=== PATIENT | male | born 1940 | race Caucasian/White ===

== ENCOUNTER 2018-09-19 11:15 | Emergency (ER) | payer MEDICARE ==
--- NOTE | 2018-09-19 13:21 | ED ---
GI/ HPI - HPI Summary HPI Summary: Patient is a 78 y/o M w/ c/o right testicular pain onsetting this morning at around 0400. Patient reports being sent to ED by PCP due to Dx of hernia. He reports two prior hernias, notes PSHx of hernia surgery repair. Patient denies coughing, sneezing, straining with bowel movement, or any other activity which could have aggravated Sx. He denies vomiting, patient arrived in private car. Fever, chills, erythema of eyes, sore throat, chest pain, SOB, cough, abdominal pain, vomiting, nausea, dysuria, hematuria, myalgia, edema, rash and dizziness are not reported. On triage, pain is rated 7/10, nothing is noted to aggravate Sx, rest is noted to alleviate Sx. Home medications and allergies are reviewed. - History of Current Complaint Chief Complaint: EDAbdPain Time Seen by Provider: 09/19/18 13:13 Stated Complaint: GROIN PAIN Hx Obtained From: Patient Onset/Duration: Started Hours Ago - onset 0400, Still Present Timing: Constant, Lasting Hours - onset 0400 today Current Severity: Severe - 7/10 Pain Intensity: 7 Additional Locations for Males: Testicles - right Associated Signs and Symptoms: Positive: Other: - Fever, chills, erythema of eyes, sore throat, chest pain, SOB, cough, abdominal pain, vomiting, nausea, dysuria, hematuria, myalgia, edema, rash and dizziness are not reported.. Negative: Dizziness, Nausea, Vomiting, Fever, Hematuria, Dysuria, Chills, Abdominal Pain, Cough, Chest Pain - Allergy/Home Medications Allergies/Adverse Reactions: Allergies Allergy/AdvReac Type Severity Reaction Status Date / Time No Known Allergies Allergy Verified 01/30/18 11:27 Home Medications: Home Medications Escitalopram (NF) [Lexapro 10 mg (NF)] 10 mg PO DAILY 09/19/18 [History Confirmed 09/19/18] Verapamil HCl [Verapamil ER] 120 mg PO DAILY 09/19/18 [History Confirmed ] PMH/Surg Hx/FS Hx/Imm Hx History: Reports: Other Problems/Disorders - Hx of hernia Sensory History: Denies: Hx Legally Blind, Hx Deafness Opthamlomology History: Denies: Hx Legally Blind EENT History: Denies: Hx Deafness - Cancer History Cancer Type, Location and Year: PROSTATE - Surgical History Surgery Procedure, Year, and Place: hernia repair surgery Infectious Disease History: No Infectious Disease History: Denies: Traveled Outside the [place] in Last 30 Days - Family History Known Family History: Negative: Blood Disorder - Social History Alcohol Use: Daily Alcohol Amount: "few beers after work" Substance Use Type: Reports: None Smoking Status (MU): Former Smoker Physical Exam - Summary Physical Exam Summary: Constitutional: Well-developed, Well-nourished, Alert. (-) Distressed Skin: Warm, Dry HENT: Normocephalic; Atraumatic Eyes: Conjunctiva normal Neck: Musculoskeletal ROM normal neck. (-) JVD, (-) Stridor, (-) Tracheal deviation Cardio: Rhythm regular, rate normal, Heart sounds normal; Intact distal pulses; The pedal pulses are 2+ and symmetric. Radial pulses are 2+ and symmetric. (-) Murmur Pulmonary/Chest wall: Effort normal. (-) Respiratory distress, (-) Wheezes, (-) Rales Abd: Soft, (-) epigastric tenderness, (-) Distension, (-) Guarding, (-) Rebound Genital Exam: Tenderness over right inguinal region, there is no hernia palpable on scrotum nor on inguinal canal through scrotum. Musculoskeletal: (-) Edema Lymph: (-) Cervical adenopathy Neuro: Alert, Oriented x3 Psych: Mood and affect Normal Triage Information Reviewed: Yes Vital Signs On Initial Exam: Initial Vitals Temp Pulse Resp BP Pulse Ox 98.3 F 91 18 154/83 95 09/19/18 11:18 09/19/18 11:18 09/19/18 11:18 09/19/18 11:18 09/19/18 11:18 Vital Signs Reviewed: Yes Diagnostics - Vital Signs Vital Signs Temp Pulse Resp BP Pulse Ox 09/19/18 11:18 98.3 F 91 18 154/83 95 - Laboratory Result Diagrams: 09/19/18 13:33 09/19/18 13:33 Lab Statement: Any lab studies that have been ordered have been reviewed, and results considered in the medical decision making process. - CT CT ABD/PEL CT Interpretation Completed By: Radiologist Summary of CT Findings: CT ABD/PEL IMPRESSION: There is a right inguinal hernia containing omentum. Along the right abdominal. wall there is fluid and thickening of the right rectus muscle. Partial tear or. inflammatory change should BE considered. No evidence of incarcerated bowel is noted. Diverticulosis of the sigmoid colon without definite diverticulitis. Enlarging left renal cyst. Lesions in the liver likely represent hemangiomas although. several too small to characterize accurately. There is likely present on previous exam of. 06/30/2012. THIS REPORT WAS REVIEWED BY ED PHYSICIAN. Re-Evaluation - Re-Evaluation First Eval Re-Evaluation Time: 15:45 Comment: Results of labs and tests were discussed with patient. He is agreeable with discharge and PCP follow up. GIGU Course/Dx - Course Course Of Treatment: Patient is a 78 y/o M w/ c/o right testicular pain onsetting this morning at around 0400. Patient reports being sent to ED by PCP due to Dx of hernia. He reports two prior hernias, notes PSHx of hernia surgery repair. Patient denies coughing, sneezing, straining with bowel movement, or any other activity which could have aggravated Sx. He denies vomiting, patient arrived in private car. On physical exam, tenderness over right inguinal region , there is no hernia palpable on scrotum nor on inguinal canal through scrotum. Labs showed Hgb 13.8, Hct 40, MCV 96, MCH 33, absolute lymphs 0.7, absolute monos 1.0, BUN/creatinine ratio 26.7, glucose 100, lactic acid 0.8, trop 0. CT ABD/PEL IMPRESSION: There is a right inguinal hernia containing omentum. Along the right abdominal. wall there is fluid and thickening of the right rectus muscle. Partial tear or. inflammatory change should BE considered. No evidence of incarcerated bowel is noted. Diverticulosis of the sigmoid colon without definite diverticulitis. Enlarging left renal cyst. Lesions in the liver likely represent hemangiomas although. several too small to characterize accurately. There is likely present on previous exam of. 06/30/2012. Results of labs and tests were discussed with patient. He is agreeable with discharge and PCP follow up. - Diagnoses Provider Diagnoses: Right inguinal hernia, Groin strain Discharge - Sign-Out/Discharge Documenting (check all that apply): Patient Departure - DISCHARGE - Discharge Plan Condition: Stable Disposition: HOME Prescriptions: Naproxen TAB* [Naprosyn 250 mg TAB*] 500 mg PO Q8H PRN #15 tab PRN Reason: Pain Scale 6-10 traMADol TAB* [Ultram*] 50 mg PO Q6HR PRN #12 tab MDD 4 PRN Reason: Pain - Moderate To Severe Patient Education Materials: Inguinal Hernia (ED), Groin Strain (ED) Referrals: Jt Neri, [Primary Care Provider] - 3 Days Additional Instructions: RETURN TO ED FOR ANY NEW OR WORSENING SYMPTOMS. FOLLOW UP WITH PRIMARY CARE PHYSICIAN IN 2-3 DAYS. - Attestation Statements Document Initiated by Scribe: Yes Documenting Scribe: SANYA ALVAREZ Provider For Whom Scribe is Documenting (Include Credential): JANELL GAXIOLA MD Scribe Attestation: ISANYA , scribed for JANELL GAXIOLA MD on 09/19/18 at 3288. Status of Scribe Document: Ready
[2018-09-19 13:42] LABS: ABS Basophils 0 10^3/ul (0-0.2); ABS Eosinophils 0 10^3/ul (0-0.6); ABS Lymphocytes 0.7 10^3/ul (1.0-4.8); ABS Neutrophils 5.9 10^3/ul (1.5-7.7); ABS Nucleated RBC 0 10^3/ul; Eosinophil % 0.3 %; Hematocrit 40 % (42-52); Hemoglobin 13.8 g/dl (14.0-18.0); Lymphocyte % 9.4 %; Mean Corpuscular HGB Conc 35 g/dl (31-36); Mean Corpuscular Hemoglobin 33 pg (27-31); Mean Corpuscular Volume 96 fL (80-94); Mean Platelet Volume 7.5 fL (7.4-10.4); Nucleated Red Blood Cells % 0; Platelet Count 199 10^3/ul (150-450); Red Blood Count 4.13 10^6/ul (4.00-5.40); Red Cell Distribution Width 13 % (10.5-15); White Blood Count 7.7 10^3/ul (3.5-10.8)
[2018-09-19 13:50] LABS: INR 0.94 (0.77-1.02)
[2018-09-19 14:02] LABS: EGFR Non-African American 101.3 (>60)
[2018-09-19] MEDS ORDERED: Iohexol 300* (CONTRAST) 10 ML SDV IV ONE (14:33)
[2018-09-19 16:11] VITALS: BP 166/94
== END 2018-09-19 16:10 | disposition home or self-care (01) ==
LOC: ED 11:15
DX: K40.90 Unilateral inguinal hernia, without obstruction or gangrene, not specified as recurrent (principal); S39.011A Strain of muscle, fascia and tendon of abdomen, initial encounter; X58.XXXA Exposure to other specified factors, initial encounter; Y92.9 Unspecified place or not applicable; Z85.46 Personal history of malignant neoplasm of prostate; Z87.891 Personal history of nicotine dependence
CPT/HCPCS: 36415; 74177; 80053; 83605; 84484; 85025; 85610; 85730; 99283; Q9967

== ENCOUNTER 2019-05-14 05:46 | Observation (INO) | payer MEDICARE ==
[2019-05-14] MEDS ORDERED: Lactated Ringers 1000 ML Bag* 1,000 ML IV SCH (06:00)
[2019-05-14] MEDS ORDERED: Tranexamic Acid 1,000 MG in NS 0.9% 50 ML IV ONE (06:00)
[2019-05-14] MEDS ORDERED: Buffered Lidocaine 1% SYRIN* 1 ML/SYRINGE INTRADERM ONE (06:13)
[2019-05-14] MEDS ORDERED: ceFAZolin 2 GM in NS PREMIX(*) 2 GM/100 ML BAG IVPB ONE (06:13)
[2019-05-14] MEDS: Buffered Lidocaine 1% SYRIN* 1 ML/SYRINGE INTRADERM ONE ×2 (06:42→15:16)
[2019-05-14] MEDS ORDERED: Bupivacaine 0.5%* 50 ML VIAL ONE (07:14)
[2019-05-14] MEDS ORDERED: Lidocaine 1% w EPI 1:200,000* 30 ML VIAL ONE (07:14)
[2019-05-14] MEDS ORDERED: Lidocaine 2% PF * 5 ML VIAL ONE (07:27)
[2019-05-14] MEDS ORDERED: Dexmedetomidine* 200 MCG/2 ML 2 ML VIAL ONE (07:28)
[2019-05-14] MEDS ORDERED: Midazolam* 1 MG/ML 2 ML VIAL (2 MG) ONE ×2 (07:30→08:58)
[2019-05-14] MEDS ORDERED: Propofol* 500 MG/50 ML BTL ONE (08:11)
[2019-05-14] MEDS ORDERED: Propofol* 10 MG/ML 20 ML BTL ONE (08:11)
[2019-05-14] MEDS ORDERED: KETAMINE HCL* 50 MG/ML 10 ML VIAL ONE (08:11)
[2019-05-14] MEDS ORDERED: Dexamethasone IV* 4 MG/ML 1 ML (4 MG) ONE (08:58)
[2019-05-14] MEDS ORDERED: Naloxone* 0.4 MG/ML 1 ML VIAL IV PRN (09:10)
[2019-05-14] MEDS ORDERED: oxyCODONE TAB* 5 MG TAB PO PRN ×2 (09:10→10:24)
[2019-05-14] MEDS ORDERED: HYDROmorphone INJ1* 1 MG/ML SYRINGE IV PRN (09:10)
[2019-05-14] MEDS ORDERED: Ondansetron INJ* 2 MG/ML VIAL IV PRN ×2 (09:10→10:24)
[2019-05-14] MEDS ORDERED: Acetaminophen TAB* 325 MG PO PRN ×2 (09:10→10:24)
[2019-05-14] MEDS ORDERED: Ketorolac INJ* 30 MG/ML 1 ML VIAL IV PRN (09:10)
[2019-05-14] MEDS ORDERED: Magnesium Hydroxide LIQ* 30 ML UDC PO PRN (10:24)
[2019-05-14] MEDS ORDERED: Bisacodyl SUPP* 10 MG SUPP PR PRN (10:24)
[2019-05-14] MEDS ORDERED: diPHENhydraMINE IV* 50 MG/ML 1 ml VIAL (BENADRYL) IV PRN (10:24)
[2019-05-14] MEDS ORDERED: Morphine INJ* 2 MG/ML 1 ML SYRINGE (TWO MG - NEW SYRINGE VERSION) IV PRN (10:24)
--- NOTE | 2019-05-14 12:36 | OP ---
DATE OF OPERATION: 05/14/19 - ROOM #337 DATE OF : 44 SURGEON: Sharan Roland MD. REPAIR SERVICE CLERK: Sahil Glass RPA. ANESTHESIA: Spinal/regional/sedation. PRE-OP DIAGNOSIS: Osteoarthritis, left knee. POST-OP DIAGNOSIS: Osteoarthritis, left knee. OPERATIVE PROCEDURE: Left total knee arthroplasty. ESTIMATED BLOOD LOSS: 25 cc. COMPLICATIONS: None. HARDWARE: Frank Persona #9 femur, F tibia, 10 mm polyethylene spacer, 41 all- polyethylene patellar button. SUMMARY: Mr. Bustillo is a 79-year-old male who has had a long history of troubles with his left knee. When he first presented, I discussed with him a total knee arthroplasty, but he had refused, but because of his memory issues, had forgotten that he refused and continued to complain to other people about his knee. Other people had heard about this and helped direct him a little bit so that he could get the knee fixed. I discussed with Mr Bustillo and his that a knee replacement should work well to decrease his pain and improve his function. Risks of surgery such as infection, scar formation, stiffness, DVT, pulmonary embolism, and the need for physical therapy were some of the risks discussed. He had been declared medically optimized and wished to proceed. DESCRIPTION OF PROCEDURE: The patient was brought to the OR and the patient had a block placed in the holding area and was brought back to the OR. Spinal anesthesia was introduced. Tourniquet was placed over the proximal left thigh and was used during the case. Total tourniquet time would be 70 minutes. Left knee was prepped and then draped. Esmarch was used to exsanguinate the leg and a tourniquet was raised. Incision was made beginning just medial to the tibial tubercle and carried to about 2 to 3 cm above the superior pole of the patella. Any bleeders in the subcutaneous tissue were ligated using electrocautery and the extensor mechanism was nicely exposed. Sharp parapatellar arthrotomy was made. Quite a bit of clear yellowish joint fluid was encountered. Fat pad was sharply excised and the soft tissues were sharply elevated from the medial side of the tibia. Patella measured 26 mm in thickness and a nice 11 mm cut was taken. Patella was then easily subluxated laterally and the knee was flexed up. Nice exposure of the distal femur was obtained. Step drill was used to open the femoral canal and intramedullary guide was placed. These have been sent to resect 2 mm and was set at 3 degrees. Distal femoral guide was aligned along the epicondyles and then pinned into place. Distal femoral cutting guide was then pinned into place and intramedullary guide was removed. Distal femoral cut was taken, but had not even fully seated on the notch and an additional 2 mm were then resected. Coming back to the femur, the femur was sized and he sat directly for a 9. Holes were drilled and cutting block was placed. Running through the superior hole, I did not come out on the top side of the femur and this was moved up by 2 mm. Drill came out right on the top side of the femur and anterior and posterior femoral cuts followed by the chamfer cuts were taken. Attention was turned to the tibia. Intramedullary guide was placed. An outrigger was assembled and adjusted until it appeared it would take 2 mm from the worn medial side. Alignment lewis was dropped to make sure he would not go into varus or valgus. Cutting guide was then pinned into place and a proximal tibial cut was taken. With the cutting block on the top side of the tibia, his varus and valgus alignment was quite good, but he was perfectly snug with the knee in flexion and the system was designed to take an extra 2 mm posteriorly. Certainly, he was tight in extension. Considering he was tight in both, an extra 2 mm were taken from the proximal tibia and now he came out nicely into extension, and flexion was nice and easy as well. Patella tracking even without a component was good. Tibia was sized and an F sat very nicely. Proximal tibia was drilled and then punched. A #9 femur was then placed and the notch cut was finished using the notch cut finishing guide and the stud holes were drilled. He was trialed with a 10 and came out and was just a little bit tight coming into full extension and easily flexed past 135 degrees. Finally, it did seem to have easily blocked out nicely. Again, patellar tracking was good. The patella was sized and the 41 sat nicely. Holes were drilled and trial was snapped into place. He had the same wonderful motion and stability. Trial instrumentation was removed and the knee was copiously pulse lavaged. Cement was being prepared. Tibia followed by femur and patella were all cemented into place. Excess cement was removed and cement was allowed to harden. Once the cement had hardened, knee was again searched for cement and a few small pieces were found and excised using the osteotome. He had the same good motion with a 10 trial and the 10 polyethylene was called for and snapped into place. The knee was again copiously pulse lavaged and he had the same wonderful motion and stability. Parapatellar arthrotomy was repaired using interrupted #1 Vicryl sutures. Tourniquet was let down during the closure and no significant bleeding was encountered. Subcutaneous tissues were approximated with 2-0 Vicryl. Skin was closed using chapo. Lateral gutter had been injected with 10 cc of 0.25% Marcaine with epinephrine as the blocks he had were posterior and femoral nerve, and the anesthesiologist recommended only the lateral gutter. Sterile dressing and Cryo/Cuff were applied in the OR. The patient was then awakened stable on transfer to the recovery room. [id number]/CPS #: [id number] LESLIE
[2019-05-14] MEDS: Lactated Ringers 1000 ML Bag* 1,000 ML IV SCH (15:04)
[2019-05-14] MEDS ORDERED: Warfarin TAB(*) 10 MG PO ONE (17:00)
[2019-05-14] MEDS: oxyCODONE/Acetamin 5/325 MG* TAB PO PRN ×2 (17:35→21:48)
[2019-05-14] MEDS: ceFAZolin 1 GM ADVAN(*) 1 GM in NS 0.9% 50 ML* 50 ML IVPB SCH (17:35)
[2019-05-14] MEDS: Docusate CAP* 100 MG PO SCH (21:47)
[2019-05-14] MEDS: Magnesium Hydroxide LIQ* 30 ML UDC PO SCH (21:48)
[2019-05-15] MEDS: ceFAZolin 1 GM ADVAN(*) 1 GM in NS 0.9% 50 ML* 50 ML IVPB SCH ×2 (00:39→08:14)
[2019-05-15] MEDS: Lactated Ringers 1000 ML Bag* 1,000 ML IV SCH (01:29)
[2019-05-15] MEDS: oxyCODONE/Acetamin 5/325 MG* TAB PO PRN ×3 (02:16→10:21)
[2019-05-15 06:26] LABS: Hematocrit 33 % (42-52); Hemoglobin 11.7 g/dL (14.0-18.0); Mean Platelet Volume 7.9 fL (7.4-10.4); Platelet Count 213 10^3/uL (150-450)
[2019-05-15 06:39] LABS: INR 1.11 (0.82-1.09)
[2019-05-15 06:45] LABS: Calcium 8.2 mg/dL (8.6-10.3); EGFR African American 158.1 (>60); EGFR Non-African American 130.6 (>60)
[2019-05-15] MEDS: Vitamin THERAPEUTIC TAB PO SCH (08:14)
[2019-05-15] MEDS: Magnesium Hydroxide LIQ* 30 ML UDC PO SCH ×2 (08:14→22:10)
[2019-05-15] MEDS: Cyclobenzaprine TAB* 10 MG PO PRN ×2 (08:18→16:14)
[2019-05-15] MEDS: Heparin VIAL(*) 5000 UNITS/ML VIAL (FIVE THOUSAND) SUBCUT SCH ×2 (08:22→22:10)
[2019-05-15] MEDS: Docusate CAP* 100 MG PO SCH ×2 (08:24→22:10)
[2019-05-15] MEDS: Verapamil SR TAB* 240 MG PO SCH (08:25)
--- NOTE | 2019-05-15 10:44 | PN ---
Progress Note - Progress Note Date of Service: 05/15/19 Note: Patient is resting comfortably in bed. He denies SOB, CP or calf pain other than baseline knee pain. He has been up with PT today and his cryo unit is in place. Dressing is intact as well. Skin is pink, dry and intact. He dorsiflexes and plantar flexes the left ankle. Sensation is intact with 2+ DP pulse and brisk capillary refill. I reviewed working on full extension and flexion beyond 100 degrees in the first 1-2 weeks to avoid stiffness. Patient feels he may be ready for discharge tomorrow. Continue PT and we will continue to follow. Warfarin dose ordered today.
[2019-05-15] MEDS: traMADol TAB* 50 MG PO PRN ×2 (16:13→22:10)
[2019-05-15] MEDS ORDERED: Warfarin TAB(*) 10 MG PO ONE (17:00)
[2019-05-16 06:31] LABS: Hematocrit 31 % (42-52); Hemoglobin 10.9 g/dL (14.0-18.0); Mean Platelet Volume 8.1 fL (7.4-10.4); Platelet Count 186 10^3/uL (150-450)
[2019-05-16 06:36] LABS: INR 1.42 (0.82-1.09)
[2019-05-16] MEDS: Vitamin THERAPEUTIC TAB PO SCH (08:41)
[2019-05-16] MEDS: Magnesium Hydroxide LIQ* 30 ML UDC PO SCH (08:41)
[2019-05-16] MEDS: Docusate CAP* 100 MG PO SCH (08:42)
[2019-05-16] MEDS: traMADol TAB* 50 MG PO PRN (08:42)
[2019-05-16] MEDS: Verapamil SR TAB* 240 MG PO SCH (08:42)
[2019-05-16] MEDS: Heparin VIAL(*) 5000 UNITS/ML VIAL (FIVE THOUSAND) SUBCUT SCH (08:43)
--- NOTE | 2019-05-16 09:51 | PN ---
Progress Note - Progress Note Date of Service: 05/16/19 SOAP: Subjective: []Pt seen and examined at bedside. Pain is well controlled and desires DC home. Denies CP, SOB, dizziness, nausea. Objective: []Gen: NAD, appears well LLE: Dressing changed, incision CDI. Thigh is soft and nontender. DF/PF intact, DP2+, sensation intact to light touch distally Calves supple and nontender without erythema, edema or palpable cords Assessment: []POD 2 sp LTK Plan: []WBAT PT/OT heparin bridge to coumadin. coumadin 6 mg today. Will do outpt PT and lab draws. also recheck Na tomorrow at lab draw Dc home today Vital Signs Temp 97.8 F 05/16/19 07:39 Pulse 84 05/16/19 07:39 Resp 14 05/16/19 08:42 BP 127/63 05/16/19 07:39 Pulse Ox 94 05/16/19 07:39 Intake & Output 05/15/19 05/16/19 05/16/19 18:59 06:59 18:59 Intake Total 2119 860 Output Total 1275 Balance 2119 -415 Intake: IV Fluids 865 LR 865 IVPB 54 ABX - CEFAZOLIN 54 Oral 1200 860 Output: Urine 1275 Other: Estimated Void Medium Medium # Bowel Movements 0 # Voids 1 1 Laboratory Last Values Hgb 10.9 g/dL (14.0-18.0) L 05/16/19 05:55 Hct 31 % (42-52) L 05/16/19 05:55 Plt Count 186 10^3/uL (150-450) 05/16/19 05:55 MPV 8.1 fL (7.4-10.4) 05/16/19 05:55 INR (Anticoag Therapy) 1.42 (0.82-1.09) H 05/16/19 05:55 Sodium 133 mmol/L (135-145) L 05/15/19 05:53 Potassium 4.0 mmol/L (3.5-5.0) 05/15/19 05:53 Chloride 103 mmol/L (101-111) 05/15/19 05:53 Carbon Dioxide 23 mmol/L (22-32) 05/15/19 05:53 Anion Gap 7 mmol/L (2-11) 05/15/19 05:53 BUN 18 mg/dL (6-24) 05/15/19 05:53 Creatinine 0.60 mg/dL (0.67-1.17) L 05/15/19 05:53 Est GFR ( Amer) 158.1 (>60) 05/15/19 05:53 Est GFR (Non-Af Amer) 130.6 (>60) 05/15/19 05:53 BUN/Creatinine Ratio 30.0 (8-20) H 05/15/19 05:53 Glucose 115 mg/dL (70-100) H 05/15/19 05:53 Calcium 8.2 mg/dL (8.6-10.3) L 05/15/19 05:53
--- NOTE | 2019-05-16 10:34 | DS ---
Orthopedic Discharge Summary - Discharge Summary Date of Admission:05/14/19 Date of Discharge: 05/16/19 Date of Surgery: 05/14/19 Attending Orthopedic Provider: Dr Roland Pre-operative Diagnosis: Left knee osteoarthritis Operative Procedure: left total knee replacement Disposition of Patient: home with nursing services Condition of Patient: stable History: MIGUEL ASTUDILLO is a 79 year old M with years of increasingly severe left knee pain. Patient has failed conservative management and has elected to undergo a left total knee replacement Hospital Course: MIGUEL was admitted to [facility] on 05/14/19. Patient underwent a left total knee replacement without complication followed by a brief recovery in PACU and transfer to the Short Stay Surgical Unit in stable condition. Our physical therapy service also participated in this patients care. Post-op day 1: patient was alert and in no acute distress. Dressing was clean, dry and intact. Operative extremity dorsiflexion and plantarflexion intact, sensation intact to light touch distally, DP2+. Post-op day two: dressing was changed, incision was clean, dry and intact. Patient was deemed to be medically and orthopedically stable for discharge. Physical therapy goals were met. Home Medications Medication Instructions Recorded Confirmed Type Verapamil HCl [Verapamil ER] 120 mg PO QAM 09/19/18 05/14/19 History Ibuprofen [Motrin Ib] 2 tab PO BID 05/08/19 05/14/19 History Multivitamin [Multiple Vitamins] 1 tab PO QAM 05/08/19 05/14/19 History Acetaminophen TAB* [Tylenol TAB*] 650 mg PO Q8H PRN tab 05/16/19 Rx Aspirin 325 mg PO DAILY #5 tablet 05/16/19 Rx Docusate CAP* [Colace Cap*] 100 mg PO BID PRN #90 cap 05/16/19 Rx Warfarin TAB(*) [Coumadin TAB(*)] 2 mg PO DAILY 30 Days #90 tab 05/16/19 Rx oxyCODONE TAB* [Roxycodone TAB 5 10 mg PO Q4H PRN #70 tab MDD 10 05/16/19 Rx mg*] Discharge Instructions following Orthopedic Surgery: Activity: * Weight Bearing as tolerated * Continue physical therapy and occupational therapy exercises as shown * Home PT Wound care: * OK to shower on post-op day 3, no bathing, swimming, or submerging wound. * Use gentle soap, pat dry. Cover with gauze, ROHAN wrap or tape. * Visiting home nurse to do wound checks. Call Orthopedic office for: * Increased drainage * Redness * Increased pain * Fever Go to ER with shortness of breath or chest pain. Diet: * Regular diet * Increase fluids and fiber to prevent constipation. * Continue to use stool softeners, call office if no bowel motion within 48 hours. Medications See Home Medication List in your packet for medications that you should take after discharge. DVT Prophylaxis: This medication increases bleeding tendency Coumadin Dosing: * Please note that you have been given 2 mg tablets. * Visiting home nurse to draw blood work for INR on Tuesday and for 30 days post op * You will be provided with dose instructions on Mondays and . * If you do not receive dosing instruction on dosing, please call our office right away. Please tucker dosing instructions on your calendar as they are provided to you. * Dosin mg 05/16. On 05/17 repeat INR blood draw for further dosing instructions. Call orthopedic office if you do not receive dosing instructions. * Until your INR reaches a therapeutic level ( 2-3) please take one 325 mg aspirin daily. Once INR is between 2-3 you can stop taking aspirin. The orthopedic office will instruct you when to stop. Lab You will also need your sodium level drawn 05/17 as it was low in the hospital Pain Control: Oxycodone 5 mg tabs take 1-2 tabs by mouth every 4-6 hours as needed for pain. Maximum of 10 tabs per day. Hold for sedation and wean off as soon as pain allows Antibiotics are required prior to any dental work. FOLLOW UP: Follow up with [Luan] Within 4 weeks post op. call for appointment Please call our office with any questions or concerns ([phone])
[2019-05-16 11:36] VITALS: BP 129/62
[2019-05-16] MEDS: oxyCODONE/Acetamin 5/325 MG* TAB PO PRN (12:31)
== END 2019-05-16 12:45 | disposition home or self-care (01) ==
LOC: OR 05:46 → EDSTATUS 07:30 → SSU 10:26 → INTOOBSV 14:56 → UNDOADMOB 14:56 → SSU 14:56
PROVIDERS: ADMIT Orthopaedic Surgery; ATTEND Orthopaedic Surgery
DX: M17.12 Unilateral primary osteoarthritis, left knee (principal); I10 Essential (primary) hypertension; J84.10 Pulmonary fibrosis, unspecified; Z87.891 Personal history of nicotine dependence; Z79.899 Other long term (current) drug therapy; F01.51 Vascular dementia, unspecified severity, with behavioral disturbance
CPT/HCPCS: 36415; 80048; 85014; 85018; 85049; 85610; 96372; 96374; 96376; A9270-GY; C1776; G0378; G8978-GP-CJ; G8979-GP-CI; J0690; J1100; J1644; J2001; J2250; J2704; J3490

== ENCOUNTER 2019-10-01 05:29 | Inpatient (IN) | payer MEDICARE ==
[~2019-10-01 05:29] MED LIST: Buffered Lidocaine 1% SYRIN* 1 ML/SYRINGE INTRADERM ONE; Lactated Ringers 1000 ML Bag* 1,000 ML IV SCH; Tranexamic Acid 1,000 MG in NS 0.9% 50 ML* (outpatient use) IV SCH
--- OUTSIDE RECORDS SUMMARY | 2019-10-01 05:33 | XMS REPORT | Continuity of Care Document ---
:1940 External Reference #:[id number] Author Name Sharan Roland M.D. (transmitted by agent of provider Sahil Glass) Address [address] [facility] [place] [address] Care Team Providers Name Role Phone Jt Neri D.O. 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 Onset: 01/02/2019 Localized, primary osteoarthritis Sharan Roland M.D. Onset: 11/02/2018 Hypoxemia Felisha Bailey MD Onset: 02/25/2017 Disorder of lung Felisha Bailey MD Onset: 02/25/2017 Social History Type Date Description Comments Sex Unknown Tobacco Use Start: Unknown End: Former Cigarette Smoker Smoked socially for Unknown 12 years Smoking Status Reviewed: 09/18/19 Former Cigarette Smoker Smoked socially for 12 years ETOH Use consumes 2-3 beers per day Tobacco Use Start: Unknown End: Patient is a former Quit in 1971 Unknown smoker Recreational Drug Use Denies Drug Use Exercise Type/Frequency Exercises regularly Allergies, Adverse Reactions, Alerts Active Allergies Reaction Severity Comments Date Aricept 01/30/2015 Inactive Allergies NKDA 01/30/2015 Medications Active Medications SIG Qnty Indications Ordering Provider Date One-Daily Multi 1 by mouth every Unknown Vitamins day Tablets Ibuprofen as needed Unknown 200mg Capsules Lisinopril 1 by mouth every Unknown 10mg Tablets day * patient unaware of dose Immunizations Description No Information Available Vital Signs Date Vital Result Comment 09/18/2019 8:12am Height 73 inches 6'1" Weight 204.50 lb Heart Rate 77 /min BP Systolic Sitting 150 mmHg BP Diastolic Sitting 84 mmHg Body Temperature 98.2 F BMI (Body Mass Index) 27.0 kg/m2 07/06/2019 12:52pm Height 73 inches 6'1" Weight 203.00 lb Heart Rate 81 /min BP Systolic Sitting 150 mmHg BP Diastolic Sitting 72 mmHg Body Temperature 98.6 F BMI (Body Mass Index) 26.8 kg/m2 Results Test Acquired Date Facility Test Result H/L Range Note Type & Screen 09/25/2019 [facility] Patient Blood B Negative [address] [place] [address] [phone] Antibody Screen NEGATIVE Inr/Protime 05/08/2019 [facility] Inr 1.01 Normal 0.82-1.09 2 , [address] [place] [address] [phone] Laboratory 05/08/2019 [facility] Partial 37.9 Normal 26.0- 38.0 4 test finding [address] [place] [address] Time PTT [phone] Type & Screen 05/08/2019 [facility] Patient B Negative [address] Blood Type [place], [place] [id number] [phone] Antibody Screen NEGATIVE 1 POST-TRAUMATIC OSTEOARTHRITIS, LEFT SHOULDER 2 AA 05/14 3 Standard intensity warfarin therapeutic range: 2.0-3.0 High intensity warfarin therapeutic range: 2.5-3.5 4 AA 05/14 Procedures Date Code Description Status 05/14/2019 24474 TKR Total Knee Replacement Completed 05/14/2019 14052 TKR Total Knee Replacement Completed Medical Devices Description No Information Available Encounters Type Date Location Provider Dx Diagnosis Office Visit 07/06/2019 [facility] Mulu Vital.112 Post- traumatic 1:00p at [facility] osteoarthritis, left shoulder Office Visit 05/04/2019 [facility] Yuly Vital7.12 Unilateral 1:15p at [facility] primary osteoarthritis, left knee Assessments Date Code Description Provider 09/18/2019 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 06/12/2019 M17.12 Unilateral primary osteoarthritis, left knee Sharan Roland M.D. 06/12/2019 Z96.652 Presence of left artificial knee joint Sharan Roland M.D. 06/12/2019 Z47.1 Aftercare following joint replacement surgery Sharan Roland M.D. 05/14/2019 M17.12 Unilateral primary osteoarthritis, left knee Sahil Glass PA-C 05/14/2019 M17.12 Unilateral primary osteoarthritis, left knee Sharan Roland M.D. 05/04/2019 M17.12 Unilateral primary osteoarthritis, left knee Sharan Roland M.D. 04/18/2019 M17.12 Unilateral primary osteoarthritis, left knee Sharan Roland M.D. 04/18/2019 M17.11 Unilateral primary osteoarthritis, right knee Sharan Roland M.D. 04/13/2019 M17.12 Unilateral primary osteoarthritis, left knee Sharan Roland M.D. Plan of Treatment Future Appointment(s):10/16/2019 11:00 am - Sharan Roland M.D. at [facility]10/01/2019 9:00 am - RG Sánchez at [facility] at [id number]/01/2019 9:00 am - Shraan Roland M.D. at [facility] at Fwzjhm3609/18/2019 - Sharan Roland M.D.M19.112 Post-traumatic osteoarthritis, left shoulderFollow up:2 weeks after surgery Functional Status Functional Condition Comment Date Status Glasses Active Mental Status Description No Information Available Referrals Description No Information Available
--- OUTSIDE RECORDS SUMMARY | 2019-10-01 05:33 | XMS REPORT | Continuity of Care Document ---
:1940 External Reference #:[id number] Author Name Sharan Roland M.D. (transmitted by agent of provider Sonal Sparrow) Address [address] [facility] [place] [address] Care Team Providers Name Role Phone Jt Neri D.O. - Internal Care Team Information Registrar Assistant Medicine Problems Active Problems Provider Date Rotator [...] Date Facility Test Result H/L Range Note Inr/Protime 05/08/2019 [facility] Inr 1.01 Normal 0.82-1.09 1 , [address] [place] [address] [phone] Laboratory test 05/08/2019 [facility] Partial 37.9 seconds Normal 26.0-38.0 [address] [place] [address] Time PTT [phone] Type & Screen 05/08/2019 [facility] Patient B Negative [address] [place] [address] [phone] Antibody Screen NEGATIVE 1 AA 05/14 2 Standard intensity warfarin therapeutic range: 2.0-3.0 High intensity warfarin therapeutic range: 2.5-3.5 3 AA 05/14 Procedures Date Code Description Status 05/14/2019 11060 TKR Total Knee Replacement Completed 05/14/2019 44498 TKR Total Knee Replacement Completed Medical Devices Description No Information Available Encounters Type Date Location Provider Dx Diagnosis Office Visit 07/06/2019 [facility] Mulu Vital.112 Post- traumatic 1:00p at [facility] osteoarthritis, left shoulder Office Visit 05/04/2019 [facility] Yuly Vital7.12 Unilateral 1:15p at [facility] [...] 11:00 am - Sharan Roland M.D. at [facility]10/01/2019 9:00 am - RG Sánchez at [facility] at [id number]/01/2019 9:00 am - Sharan Roland M.D. at [facility] at Rstsgh7909/18/2019 - Sharan Roland M.D.M19.112 Post-traumatic osteoarthritis, left shoulderFollow up:2 weeks after surgery Functional Status Functional Condition Comment Date Status Glasses Active Mental Status Description No Information Available Referrals Description No Information Available
[2019-10-01] MEDS ORDERED: ceFAZolin 2 GM PREMIX in ORs 2 GM/50 ML BAG ONE (06:01)
[2019-10-01] MEDS ORDERED: Lidocaine 2% PF * 5 ML VIAL ONE (06:56)
[2019-10-01] MEDS ORDERED: Propofol* 10 MG/ML 20 ML BTL ONE (06:56)
[2019-10-01] MEDS ORDERED: Dexmedetomidine* 200 MCG/2 ML 2 ML VIAL ONE (06:57)
[2019-10-01] MEDS ORDERED: ROPIVACAINE 5 MG/ML 30 ML BTL (0.5%) ONE (06:57)
[2019-10-01] MEDS ORDERED: Midazolam* 1 MG/ML 2 ML VIAL (2 MG) ONE ×2 (06:57→10:17)
[2019-10-01] MEDS ORDERED: Bupivacaine 0.5% W/EPI SDV* 30 ML VIAL ONE (06:58)
[2019-10-01] MEDS ORDERED: Lidocaine 1% MPF ** 5 ML VIAL ONE (07:16)
[2019-10-01] MEDS ORDERED: Remifentanil* 2 MG VIAL ONE ×2 (07:35→10:17)
[2019-10-01] MEDS ORDERED: Propofol* 500 MG/50 ML BTL ONE ×2 (07:35→09:18)
[2019-10-01] MEDS ORDERED: Phenylephrine 10 MG/ML VIAL* 1 ML VIAL ONE (07:43)
[2019-10-01] MEDS ORDERED: fentaNYL* 50 MCG/ML 2 ML VIAL (100 MCG VIAL) ONE (08:16)
[2019-10-01] MEDS ORDERED: Rocuronium* 10 MG/ML VIAL ONE (08:17)
[2019-10-01] MEDS: Lactated Ringers 1000 ML Bag* 1,000 ML IV SCH ×2 (08:40→13:06)
[2019-10-01] MEDS ORDERED: Dexamethasone IV* 4 MG/ML 1 ML (4 MG) ONE (09:09)
[2019-10-01] MEDS ORDERED: Ketorolac INJ* 30 MG/ML 1 ML VIAL ONE (09:09)
[2019-10-01] MEDS ORDERED: Metoclopramide IV* 5 MG/ML 2 ML VIAL ONE (09:09)
[2019-10-01] MEDS ORDERED: Ondansetron INJ* 2 MG/ML VIAL ONE (09:09)
[2019-10-01] MEDS ORDERED: HYDROmorphone INJ1* 1 MG/ML SYRINGE IV PRN (10:05)
[2019-10-01] MEDS ORDERED: DiMENhydriNATE IV* 50 MG/ML VIAL IV PUSH PRN (10:05)
[2019-10-01] MEDS ORDERED: oxyCODONE TAB* 5 MG TAB PO PRN ×2 (10:05→11:17)
[2019-10-01] MEDS ORDERED: Naloxone* 0.4 MG/ML 1 ML VIAL IV PRN (10:05)
[2019-10-01] MEDS ORDERED: EPHEDrine (Pressors)* 50 MG/ML VIAL ONE (10:17)
[2019-10-01] MEDS ORDERED: Glycopyrrolate IV* 0.2 MG/ML 1 ML VIAL ONE (10:56)
[2019-10-01] MEDS ORDERED: Neostigmine Methylsulfate* 1 MG/ML 10 ML VIAL (1 mg/ml) ONE (10:56)
[2019-10-01] MEDS ORDERED: Ondansetron INJ* 2 MG/ML VIAL IV PRN (11:17)
[2019-10-01] MEDS ORDERED: Ondansetron ODT TAB* 4 MG PO PRN (11:17)
[2019-10-01] MEDS ORDERED: Ketorolac INJ* 30 MG/ML 1 ML VIAL IV PRN (11:17)
[2019-10-01] MEDS ORDERED: diPHENhydraMINE IV* 50 MG/ML 1 ml VIAL (BENADRYL) IV PRN (11:17)
[2019-10-01] MEDS ORDERED: Cyclobenzaprine TAB* 10 MG PO PRN (11:17)
[2019-10-01] MEDS ORDERED: diPHENhydraMINE PO* 25 MG PO PRN (11:17)
[2019-10-01] MEDS ORDERED: Morphine INJ* 2 MG/ML 1 ML SYRINGE (TWO MG - NEW SYRINGE VERSION) IV PRN (11:17)
[2019-10-01] MEDS ORDERED: Magnesium Hydroxide LIQ* 30 ML UDC PO PRN (11:17)
--- NOTE | 2019-10-01 12:54 | OP ---
DATE OF OPERATION: 10/01/19 - ROOM #338 DATE OF : 44 SURGEON: Sharan Roland MD GENERATING PLANT SUPERINTENDENT: Amanda Pineda RPA ANESTHESIA: General endotracheal and regional. PRE-OP DIAGNOSIS: Traumatic arthropathy, left shoulder. 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 OPERATIVE PROCEDURE: Left reverse total shoulder arthroplasty. ESTIMATED BLOOD LOSS: 200 cc. COMPLICATIONS: None. SPECIMEN: Synovium from lateral cyst. HARDWARE: Agrawal #24 stem reverse body, +9 instrument lens generator with standard polyethylene liner, standard glenoid with 2 screws, 36 mm eccentric glenosphere. INDICATIONS: Mr. Bustillo is a 79-year-old male who had previously undergone a right total knee arthroplasty. He had done quite well with this and also has been complaining quite a bit about his left shoulder. He had quite impressive bulges around the shoulder, which MRI showed was seemed to be joint fluid from a lack of a rotator cuff even though the radiologist read them as no rotator cuff tear. Considering that he had worn down the glenoid and had significant arthritis and bone spurs, I discussed with him that a standard shoulder replacement would not work well so he would need a reverse total shoulder arthroplasty. Risks of surgery such as infection, scar formation, stiffness, instability, continued pain, and nerve injury were some of the risks discussed. He had been declared medically optimized and wished to proceed. FINDINGS: Thickened synovium in the cyst, which was reddish brown with no useful rotator cuff tissue. DESCRIPTION OF PROCEDURE: The patient had a block placed in the holding area and was brought back to the OR. General endotracheal anesthesia was established. Zheng catheter was placed and he was then sat up in a beach chair position. Care was taken to make sure that his right arm was nicely abducted on the armboard and that the cubital tunnel was free and clear. Left shoulder area was prepped and then draped. I came more lateral than I usually do as I usually come much more over deltopectoral interval, but because of the cyst that he had, I thought coming directly over the cyst as he already had thinned out his deltoid tissue significantly would work well to give us nice access to the glenoid and then I could bring all of his deltoid back together so that he would have a better functioning deltoid. Incision was made through the skin and subcutaneous tissue. Small bleeders encountered were ligated using electrocautery. Gentle dissection was carried out and full-thickness flaps were elevated and it could be seen where the cyst had thinned and there was only cyst tissue, and at the very proximal portion, there was only a little bit of deltoid musculature. Incision was made and thick yellowish joint fluid was encountered. He also though had abundant synovial tissue, which was mostly reddish and with a few brown here and there. It did not appear like the typical PVNS with the bleeding, but it was proliferative enough so that this was sent for pathology. Once the cyst had been nicely debrided, the humerus was immediately evident. No rotator cuff. Just with taking the cyst down, I could palpate all the way around into the glenohumeral joint easily. There did not seem to be a supraspinatus nor a subscapularis. Rather his cyst tissue was wrapped around as I could come down on top of the bone and he still had some of the cyst tissue and cyst tissue was also then resected. This gave nice access to the humeral head. Once the head had been exposed, broach was used and outrigger was assembled so that I could resect the humeral head. Once the alignment was set at about 20 degrees, cutting guide was pinned into place and proximal humeral cut was taken. Using the humeral head retractor and the Fukuda , exposure of the glenoid was actually relatively easy from this lateral angle. I was able to resect labrum nicely and labrum was then peeled a little bit anteriorly to allow me better access. With this, I had full exposure of the face of the glenoid. Drill guide was placed, and after just drilling a little bit, I encountered what I thought to be the posterior wall and then came through and then hit no resistance. Pin was then moved a little anteriorly and I angled a little bit more into what I thought would be the plane of a scapula and came through the bone of the glenoid and then there he seemed to have solid bone behind. Reamer was then run and when I just started to touch posteriorly, reaming was stopped. I had created a nice little recess for the glenoid. Standard drill was then run over the guidewire and guidewire came out with the drill. Standard glenoid was then impacted into place. Glenoid itself seemed to be nice and solid and then 2 screws, one 25 and one 30, were also placed and both screws had a wonderful bite. Attention was returned to the humerus. Humerus was progressively broached and I had templated him to a 24 and a 23 was snug, but still a little bit loose, and with the 24 fully seated, I could rock his entire arm. Reamer was then set. 24 was removed and he was then set up for reaming. Reamer was then run creating the recess for the humeral head. Trial was then placed and 36 slightly eccentric glenosphere was also placed. Glenosphere had a nice squeak when it was fully settled. With just the standard , he was loose and I could easily slide him in and out of reduction. I went with the +3, +6 and then the +9 extension, and with the +9 extension, he seemed to be fairly good. This was trialed and his motion seemed to be good and his stability was also quite good. Trial was removed and the 24 with the reverse body was impacted on the back table. This was then impacted into the humerus. He was again trialed and I liked the polyethylene slightly rotated so that it would give him the lip a little bit more as he wanted to lever a little bit coming across his body. +9 extension was impacted onto the implant and he was trialed again with the standard, and now, he did not lever when I had him rotated. Standard polyethylene was then impacted into place. I took him through motion. He had same wonderful motion and stability. Shoulder was copiously irrigated using pulse lavage and deltoid was repaired using interrupted 0 Vicryl sutures. Subcutaneous tissues were reapproximated with 2-0 Vicryl. Skin was repaired using a running PDS. Sterile dressing and a shoulder immobilizer were applied in the OR. The patient was then extubated in the OR and was stable on transfer to the recovery room. [id number]/[facility] #: [id number] LESLIE
[2019-10-01] MEDS: traMADol TAB* 50 MG PO SCH ×3 (14:15→23:44)
[2019-10-01] MEDS: Acetaminophen TAB* 325 MG PO SCH ×2 (14:24→21:35)
[2019-10-01] MEDS: ceFAZolin 1 GM ADVAN(*) 1 GM in NS 0.9% 50 ML* 50 ML IVPB SCH ×2 (14:24→21:37)
[2019-10-01] MEDS: Magnesium Hydroxide LIQ* 30 ML UDC PO SCH (20:17)
[2019-10-01] MEDS: Docusate CAP* 100 MG PO SCH (20:17)
[2019-10-02] MEDS: Acetaminophen TAB* 325 MG PO SCH ×3 (05:46→21:10)
[2019-10-02] MEDS: traMADol TAB* 50 MG PO SCH ×3 (05:46→18:02)
[2019-10-02] MEDS: ceFAZolin 1 GM ADVAN(*) 1 GM in NS 0.9% 50 ML* 50 ML IVPB SCH (05:57)
[2019-10-02 06:36] LABS: Hematocrit 28 % (42-52); Hemoglobin 9.9 g/dL (14.0-18.0); Mean Platelet Volume 7.7 fL (7.4-10.4); Platelet Count 202 10^3/uL (150-450)
[2019-10-02 06:48] LABS: BUN/Creatinine Ratio 11.7 (8-20); Calcium 6.6 mg/dL (8.6-10.3); EGFR African American 44.8 (>60); Potassium 3.5 mmol/L (3.5-5.0)
--- NOTE | 2019-10-02 07:38 | PN ---
Progress Note - Progress Note Date of Service: 10/02/19 SOAP: Subjective: []Pt seen at bedside. He feels well with a sore but not painful shoulder. Denies CP, SOB, dizziness, nausea, abd pain. He has acute kidney injury this morning, states he drinks very little fluids at baseline and did not drink much yesterday. Reports he fell out of bed yesterday with no injuries. Objective: []Gen: NAD, appears well LUE: Dressing CDI, shoulder immobilizer in place. f/e at wrist and all digits intact, sensation intact to light touch distally, radial pulse 2+, cap refill less than tow seconds distally Assessment: []pod 1 SP reverse left total shoulder replacement Acute kidney injury Plan: []Pt reports he fell out of bed last night while reaching for something, has a bed alarm and nursing states this has not occurred to their knowledge. Shoulder Xray ordered Discussed acute kidney injury with Dr Adkins. Run LR 100 ml/ hr and encourage PO intake. Stopped toradol and lisinopril, decrease lovenox to 30 mg sq qd and repeat creatinine tomorrow to ensure trending towards normal. UA and bladder scan. Vital Signs Temp 98.6 F 10/02/19 08:02 Pulse 88 10/02/19 08:02 Resp 12 10/02/19 08:02 BP 127/71 10/02/19 08:02 Pulse Ox 95 10/02/19 08:02 Intake & Output 10/01/19 10/02/19 10/02/19 18:59 06:59 18:59 Intake Total 340 590 360 Output Total 400 350 Balance -60 240 360 Intake: IV Fluids 100 NS 100ML, Cefazolin 2G 100 IVPB 50 ABX - CEFAZOLIN 50 Oral 240 540 360 Output: Urine 400 350 Other: Estimated Void Medium Laboratory Last Values Hgb 9.9 g/dL (14.0-18.0) L 10/02/19 06:02 Hct 28 % (42-52) L 10/02/19 06:02 Plt Count 202 10^3/uL (150-450) 10/02/19 06:02 MPV 7.7 fL (7.4-10.4) 10/02/19 06:02 Sodium 142 mmol/L (135-145) 10/02/19 06:02 Potassium 3.5 mmol/L (3.5-5.0) 10/02/19 06:02 Chloride 108 mmol/L (101-111) 10/02/19 06:02 Carbon Dioxide 22 mmol/L (22-32) 10/02/19 06:02 Anion Gap 12 mmol/L (2-11) H 10/02/19 06:02 BUN 21 mg/dL (6-24) 10/02/19 06:02 Creatinine 1.79 mg/dL (0.67-1.17) H 10/02/19 06:02 Est GFR ( Amer) 44.8 (>60) 10/02/19 06:02 Est GFR (Non-Af Amer) 37.0 (>60) 10/02/19 06:02 BUN/Creatinine Ratio 11.7 (8-20) 10/02/19 06:02 Glucose 94 mg/dL (70-100) 10/02/19 06:02 Calcium 6.6 mg/dL (8.6-10.3) L 10/02/19 06:02
[2019-10-02] MEDS: Lactated Ringers 1000 ML Bag* 1,000 ML IV SCH ×2 (07:45→18:25)
[2019-10-02] MEDS: Magnesium Hydroxide LIQ* 30 ML UDC PO SCH ×2 (08:44→21:11)
[2019-10-02] MEDS: Cyanocobalamin TAB* 500 MCG PO SCH (08:44)
[2019-10-02] MEDS: Vitamin THERAPEUTIC TAB PO SCH (08:44)
[2019-10-02] MEDS: Docusate CAP* 100 MG PO SCH ×2 (08:44→21:11)
[2019-10-02] MEDS ORDERED: Vitamin THERAPEUTIC TAB PO SCH (09:00)
[2019-10-02] MEDS ORDERED: Lisinopril TAB* 10 MG PO SCH ×2 (09:00)
[2019-10-02] MEDS ORDERED: Enoxaparin(*) 40 MG/0.4 ML SYR SUBCUT SCH (12:00)
[2019-10-02] MEDS: Enoxaparin(*) 30 MG/0.3 ML SYR SUBCUT SCH (12:20)
[2019-10-02 12:35] LABS: Urine Appearance Clear; Urine Bilirubin Negative (Negative); Urine Blood 1+ (Negative); Urine Color Yellow; Urine Glucose Negative (Negative); Urine Ketones Negative (Negative); Urine Nitrite Negative (Negative); Urine Protein Negative (Negative); Urine Urobilinogen Negative (Negative)
[2019-10-02 12:40] LABS: Urine Bacteria Absent (Absent); Urine Red Blood Cell 2+(6-10/hpf) (Absent); Urine White Blood Cell Trace(0-5/hpf) (Absent)
[2019-10-03] MEDS: traMADol TAB* 50 MG PO SCH ×3 (00:15→12:35)
[2019-10-03] MEDS: Lactated Ringers 1000 ML Bag* 1,000 ML IV SCH (04:41)
[2019-10-03] MEDS: Acetaminophen TAB* 325 MG PO SCH (06:17)
[2019-10-03 06:33] LABS: Hematocrit 30 % (42-52); Hemoglobin 10.8 g/dL (14.0-18.0); Mean Platelet Volume 7.7 fL (7.4-10.4); Platelet Count 209 10^3/uL (150-450)
[2019-10-03 06:51] LABS: BUN/Creatinine Ratio 23.3 (8-20); Calcium 8.2 mg/dL (8.6-10.3); EGFR African American 158.1 (>60); EGFR Non-African American 130.6 (>60); Potassium 4.1 mmol/L (3.5-5.0)
[2019-10-03] MEDS: Cyanocobalamin TAB* 500 MCG PO SCH (08:08)
[2019-10-03] MEDS: Vitamin THERAPEUTIC TAB PO SCH (08:08)
[2019-10-03] MEDS: Docusate CAP* 100 MG PO SCH (08:08)
--- NOTE | 2019-10-03 09:27 | DS ---
Orthopedic Discharge Summary - Discharge Summary Date of Admission:10/01/19 Date of Discharge: 10/03/19 Date of Surgery: 10/01/19 Attending Orthopedic Provider: Dr Roland Pre-operative Diagnosis: Left shoulder osteoarthritis Operative Procedure: left total shoulder replacement, reverse Disposition of Patient: home with nursing services Condition of Patient: stable History: MIGUEL ASTUDILLO is a 79 year old M with years of increasingly severe left shoulder pain. Patient has failed conservative management and has elected to undergo a left reverse total shoulder replacement Hospital Course: MIGUEL was admitted to [facility] on 10/01/19. Patient underwent a left reverse total shoulder replacement without complication followed by a brief recovery in PACU and transfer to the Short Stay Surgical Unit in stable condition. physical therapy and occupational therapy also participated in this patients care. Post-op day 1: patient was alert and in no acute distress. Dressing was clean, dry and intact. Operative extremity dorsiflexion and plantarflexion intact, sensation intact to light touch distally, DP2+. Patient had acute renal injury, discussed with medicine and stopped toradol, lisinopril, decreased lovenox, and ran LR at 100 ml/hr. Dressing was saturated with blood and changed, incision CDI. Post-op day two: patient felt well without cp,sob, dizziness, nausea, abd pain. Creatinine had improved, he had hyponatremia to 131. dressing was CDI, f/e at wrist and mcps intact, sensation intact to light touch distally. Patient was deemed to be medically and orthopedically stable for discharge. Physical therapy goals were met. Home Medications Medication Instructions Recorded Confirmed Type Multivitamin [Multiple Vitamins] 1 tab PO QAM 05/08/19 10/01/19 History Acetaminophen TAB* [Tylenol TAB*] 650 mg PO Q8H PRN tab 05/16/19 09/25/19 Rx Cyanocobalamin TAB* [Vitamin B12 1,000 mcg PO QAM 09/25/19 10/01/19 History TAB*] Acetaminophen TAB* [Tylenol TAB*] 975 mg PO Q8HR tab 10/03/19 Rx lisinopriL [Lisinopril] HOLD 40 mg PO QAM #0 10/03/19 10/01/19 Rx traMADol TAB* [Ultram*] 50 mg PO Q6HR PRN #50 tab MDD 8 10/03/19 Rx Shoulder restrictions: Non-weight bearing to operative arm, able to remove from immobilizer for showering 10/05/19, pendulum exercises as shown by PT, passive range of motion to 90 flexion, 90 abduction, and 25 external rotation as shown. No Active movement of shoulder. Continue physical therapy and occupational therapy exercises as shown. Wound Care: Nurse to do wound checks. OK to shower as of 10/05/19, no bathing / swimming/ submerging wound. Use gentle soap, pat dry. Cover with gauze, paper tape. Call Orthopedic office for increased drainage, redness, increased pain, or fever. Go to ER with shortness of breath or chest pain. Diet: Regular diet, increase fluids and fiber to prevent constipation. Continue to use stool softeners, call office if no bowel motion within 48 hours. Please have a lab draw for BMP to check sodium and kidney function within 2 days. Hold your lisinopril until renal function is rechecked and PCP wants you to restart it. Nurse should check blood pressure. - Pain control: Tramadol 50 mg 1-2 tabs every 6 hours as needed for pain, max 8 per day. Hold for sedation. Wean off as soon as pain allows. Antibitoics required prior to dental work Please call our office with any questions or concerns ([phone]) [facility]
[2019-10-03] MEDS ORDERED: Bisacodyl SUPP* 10 MG SUPP PR PRN (11:18)
[2019-10-03 11:35] VITALS: BP 149/57
[2019-10-03] MEDS: Magnesium Hydroxide LIQ* 30 ML UDC PO SCH (12:35)
[2019-10-03] MEDS: Enoxaparin(*) 30 MG/0.3 ML SYR SUBCUT SCH (12:37)
== END 2019-10-03 13:15 | disposition home health service (06) | DRG 483 ==
LOC: AA 05:29 → SSU 11:18
PROVIDERS: ADMIT Orthopaedic Surgery; ATTEND Orthopaedic Surgery
PROC: 0RRK00Z Replacement of Left Shoulder Joint with Reverse Ball and Socket Synthetic Substitute, Open Approach (ICD-10-PCS; principal; 2019-10-01 07:30)
DX: M19.112 Post-traumatic osteoarthritis, left shoulder (principal); N17.9 Acute kidney failure, unspecified; E87.1 Hypo-osmolality and hyponatremia; F01.51 Vascular dementia, unspecified severity, with behavioral disturbance; I10 Essential (primary) hypertension; Z96.652 Presence of left artificial knee joint; J84.10 Pulmonary fibrosis, unspecified; M71.312 Other bursal cyst, left shoulder; Z87.891 Personal history of nicotine dependence; Z79.899 Other long term (current) drug therapy; Z85.46 Personal history of malignant neoplasm of prostate
CPT/HCPCS: 36415; 80048; 81003; 81015; 85014; 85018; 85049; 87086; A9270-GY; G8978-GP-CJ; G8979-GP-CI; J0690; J1100; J1650; J1885; J2250; J2405; J2704; J2710; J2765; J2795; J3010

== ENCOUNTER 2019-10-11 13:57 | Emergency (ER) | payer MEDICARE ==
--- OUTSIDE RECORDS SUMMARY | 2019-10-11 14:10 | XMS REPORT | Continuity of Care Document ---
:1940 External Reference #:[id number] Author Name Sharan Roland M.D. (transmitted by agent of provider Adriana Forbes) Address [address] [place] [address] [place] [address] Care Team Providers Name Role Phone Jt Neri D.O. - Internal Care Team Information Manager Cargo [phone] Medicine Problems Active Problems Provider Date Rotator [...] H/L Range Note Type & Screen 09/25/2019 [facility] Patient Blood B Negative [address] Type [place], [place] [id number] [phone] Antibody Screen NEGATIVE Inr/Protime 05/08/2019 [facility] Inr 1.01 Normal 0.82-1.09 2 , [address] [place] [address] [phone] Laboratory 05/08/2019 [facility] Partial 37.9 Normal 26.0- 38.0 4 test finding [address] [place] [address] Time PTT [phone] Type & Screen 05/08/2019 [facility] Patient B Negative [address] Blood Type [place], [place] [address] [phone] Antibody Screen NEGATIVE 1 POST-TRAUMATIC OSTEOARTHRITIS, LEFT SHOULDER 2 AA 05/14 3 Standard intensity warfarin therapeutic range: 2.0-3.0 High intensity warfarin therapeutic range: 2.5-3.5 4 AA 05/14 Procedures Date Code Description Status 05/14/2019 80714 TKR Total Knee Replacement Completed 05/14/2019 95527 TKR Total Knee Replacement Completed Medical Devices Description No Information Available Encounters Type Date Location Provider Dx Diagnosis Office Visit 07/06/2019 [facility] Mulu Vital.112 Post- traumatic 1:00p at [facility] [...] 11:00 am - Sharan Roland M.D. at [facility] at Azoaxyfc31/26/2019 - Sharan Roland M.D.M19.112 Post-traumatic osteoarthritis, left shoulderFollow up:2 weeks after surgery Functional Status Functional Condition Comment Date Status Glasses Active Mental Status Description No Information Available Referrals Description No Information Available
--- NOTE | 2019-10-11 14:57 | ED ---
Upper Extremity Pain - HPI Summary HPI Summary: 79-year-old male presents with left shoulder pain for the past day. He had a shoulder replaced last week by dr roland. He states he went home and OT was seeing him and thought that his shoulder was dislocated. States he did not follow-up with orthopedic yet. He states that OT saw him today and they felt that joint was clicking and was possible dislocated when they moved the shoulder. He has not been doing any active range of motion. No numbness or tingling. No increase in pain of the area. no increased swelling. - History of Current Complaint Chief Complaint: EDShoulderClavicleInj Stated Complaint: POSS DISLOCATED LEFT SHOULDER PER Time Seen by Provider: 10/11/19 14:26 - Allergies/Home Medications Allergies/Adverse Reactions: Allergies Allergy/AdvReac Type Severity Reaction Status Date / Time donepezil [From Aricept] Allergy Rash Verified 10/11/19 14:31 tramadol Allergy Altered Verified 10/11/19 14:31 Mental Status Home Medications: Home Medications Acetaminophen TAB* [Tylenol TAB*] 325 mg PO Q4H PRN 10/11/19 [History Confirmed 10/11/19] Ibuprofen TAB* [Advil TAB*] 200 mg PO Q6H PRN 10/11/19 [History Confirmed ] PMH/Surg Hx/FS Hx/Imm Hx Endocrine/Hematology History: Denies: Hx Diabetes Cardiovascular History: Reports: Hx Hypertension Denies: Other Cardiovascular Problems/Disorders Respiratory History: Reports: Other Respiratory Problems/Disorders - 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 KNEE REPLACEMENT LEFT [facility] [place]. PROSTATECTOMY [place] 2013 Hx Anesthesia Reactions: No - Immunization History Immunizations Up to Date: Yes Infectious Disease History: No Infectious Disease History: Denies: Hx Clostridium Difficile, Hx Hepatitis, Hx Human Immunodeficiency Virus (HIV), Hx of Known/Suspected MRSA, Hx Shingles, Hx Tuberculosis, History Other Infectious Disease, Traveled Outside the [place] in Last 30 Days - Family History Known Family History: Negative: Blood Disorder - Social History Alcohol Use: Daily Alcohol Amount: "few beers after work" Substance Use Type: Reports: None Smoking Status (MU): Former Smoker Amount Used/How Often: X OFF AND ON 4-5 YEARS Have You Smoked in the Last Year: No Review of Systems Negative: Fever Negative: Chest Pain Negative: Shortness Of Breath Positive: Myalgia - left shoulder pain All Other Systems Reviewed And Are Negative: Yes Physical Exam Triage Information Reviewed: Yes Vital Signs On Initial Exam: Initial Vitals Temp Pulse Resp BP Pulse Ox 97.1 F 82 16 157/84 97 10/11/19 13:57 10/11/19 13:57 10/11/19 13:57 10/11/19 13:57 10/11/19 13:57 Vital Signs Reviewed: Yes Appearance: Positive: Well-Appearing Skin: Positive: Warm, Dry, Other - incision clean dry intact Head/Face: Positive: Normal Head/Face Inspection Eyes: Positive: Normal, Conjunctiva Clear ENT: Positive: Pharynx normal Respiratory/Lung Sounds: Positive: Clear to Auscultation, Breath Sounds Present Cardiovascular: Positive: Normal, RRR Musculoskeletal: Positive: Limited @ - passive ROM intact up to 45 degree flexion without difficulty,, Other - good pulses, 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 - Radiology shoulder Radiology Interpretation Completed By: Radiologist Summary of Radiographic Findings: IMPRESSION: STATUS POST LEFT GLENOHUMERAL ARTHROPLASTY. NO ACUTE OSSEOUS INJURY. IF SYMPTOMS PERSIST, RECOMMEND REPEAT IMAGING Course/Dx - Course Course Of Treatment: 79-year-old male presents with left shoulder pain for the past day. He had a shoulder replaced last week by dr roland. He states he went home and OT was seeing him and thought that his shoulder was dislocated. States he did not follow-up with orthopedic yet. He states that OT saw him today and they felt that joint was clicking and was possible dislocated when they moved the shoulder. He has not been doing any active range of motion. No numbness or tingling. No increase in pain of the area. no increased swelling. On exam Steri-Strips are clean dry and intact. No edema noted to the area. Has good range of motion allusion passively of the shoulder. X-ray shows no dislocation. spoke with dr dumont who says to use sling and to start ROM in a couple days and follow up with thanh next week. - Diagnoses Differential Diagnosis/HQI/PQRI: Positive: Fracture (Closed), Strain, Other - dislocation Provider Diagnoses: Left shoulder pain - Physician Notifications Discussed Care of Patient With: Harvey Dumont Time Discussed With Above Provider: 15:10 - sling and follow up next week Discharge ED - Sign-Out/Discharge Documenting (check all that apply): Patient Departure - Discharge Plan Condition: Good Disposition: HOME Referrals: Jt Jacques DO [Primary Care Provider] - Sharan Roland MD [Family Provider] - Additional Instructions: keep in sling start ROM exercises in a couple days follow up with dr roland Return to ED if develop any new or worsening symptoms - Billing Disposition and Condition Condition: GOOD Disposition: Home
[2019-10-11 15:39] VITALS: BP 156/91
== END 2019-10-11 15:31 | disposition home or self-care (01) ==
LOC: ED 13:57
DX: M25.512 Pain in left shoulder (principal); I10 Essential (primary) hypertension; Z85.46 Personal history of malignant neoplasm of prostate; Z96.652 Presence of left artificial knee joint; Z87.891 Personal history of nicotine dependence; Z88.5 Allergy status to narcotic agent; Z88.8 Allergy status to other drugs, medicaments and biological substances
CPT/HCPCS: 99281

== ENCOUNTER 2019-12-07 11:47 | Day surgery (SDC) | payer MEDICARE ==
[~2019-12-07 11:47] MED LIST changes: -Tranexamic Acid 1,000 MG in NS 0.9% 50 ML* (outpatient use) IV SCH
[2019-12-07] MEDS ORDERED: ceFAZolin 2 GM in NS PREMIX(*) 2 GM/100 ML BAG IVPB ONE (12:14)
[2019-12-07] MEDS ORDERED: Midazolam* 1 MG/ML 2 ML VIAL (2 MG) ONE (14:17)
[2019-12-07] MEDS ORDERED: Succinylcholine* 20 MG/ML 10 ML VIAL ONE (14:17)
[2019-12-07] MEDS ORDERED: Propofol* 10 MG/ML 20 ML BTL ONE ×4 (14:17→17:24)
[2019-12-07] MEDS ORDERED: Lidocaine 2% PF * 5 ML VIAL ONE (14:17)
[2019-12-07] MEDS ORDERED: Povidone Iodine 5% OPTH* 30 ML BTL ONE ×2 (14:20→14:32)
[2019-12-07] MEDS ORDERED: Vancomycin(*) 1,000 MG VIAL ONE (14:32)
[2019-12-07] MEDS ORDERED: Propofol* 100 ML ONE (14:48)
[2019-12-07] MEDS ORDERED: Remifentanil* 2 MG VIAL ONE (14:49)
[2019-12-07] MEDS ORDERED: Bupivacaine 0.5% W/EPI SDV* 10 ML VIAL INJ ONE (14:58)
[2019-12-07] MEDS ORDERED: DiMENhydriNATE IV* 50 MG/ML VIAL IV PUSH PRN (15:53)
[2019-12-07] MEDS ORDERED: oxyCODONE TAB* 5 MG TAB PO PRN (15:53)
[2019-12-07] MEDS ORDERED: Naloxone* 0.4 MG/ML 1 ML VIAL IV PRN (15:53)
[2019-12-07] MEDS ORDERED: HYDROmorphone INJ1* 1 MG/ML SYRINGE IV PRN (15:53)
[2019-12-07] MEDS ORDERED: Phenylephrine 40 MCG/ML SYRINGE ONE (15:59)
[2019-12-07] MEDS ORDERED: Ketorolac INJ* 30 MG/ML 1 ML VIAL ONE (16:00)
[2019-12-07] MEDS ORDERED: Ondansetron INJ* 2 MG/ML VIAL ONE (16:00)
[2019-12-07] MEDS ORDERED: Dexamethasone IV* 4 MG/ML 1 ML (4 MG) ONE (16:00)
[2019-12-07] MEDS ORDERED: Metoclopramide IV* 5 MG/ML 2 ML VIAL ONE (16:00)
[2019-12-07] MEDS ORDERED: Acetaminophen IV 1GM/100ML * 100 ML ONE (17:08)
[2019-12-07] MEDS ORDERED: HYDROmorphone INJ1* 1 MG/ML SYRINGE ONE (17:17)
[2019-12-07] MEDS ORDERED: oxyCODONE TAB* 5 MG TAB ONE (18:02)
[2019-12-07 18:31] VITALS: BP 135/75
--- NOTE | 2019-12-08 02:41 | OP ---
DATE OF OPERATION: 12/07/19 [facility] DATE OF : 44 SURGEON: Sharan Roland MD. MECHANIC GENERAL OPERATIONAL TEST: Dmitriy Moscoso RPA. ANESTHESIA: General endotracheal. PRE-OP DIAGNOSES: 1. Infected left total shoulder arthroplasty. 2. Dislocation left total shoulder. POST-OP DIAGNOSES: 1. Infected left total shoulder arthroplasty. 2. Dislocation left total shoulder. OPERATIVE PROCEDURE: Washout left total shoulder arthroplasty with exchange of head and polyethylene. ESTIMATED BLOOD LOSS: 50 cc. COMPLICATIONS: None. INDICATION: Mr. Bustillo is a 79-year-old male who at the beginning of September underwent a reverse left total shoulder arthroplasty. He appeared to do well with no pain, no troubles, and was progressing with home exercises. He did develop an upper respiratory infection mid October and missed his scheduled followup appointment. He had last been seen on 10/16/19 and was doing well at that point. We had a call from the visiting nurse service that the wound had broken open and he was draining some. He was brought into the office and I aspirated the area that was flocculent but this came back with a relatively low white blood cell count. I was still suspicious there was a deeper process ongoing, so I had taken him to the OR that next week, which was 7 days ago. Deep cultures were taken and I asked the lab to look for P. acnes, and on Tuesday late afternoon, they did come back positive for that. I had seen him on and discussed with him I would like to wash him out formally and exchange the head and polyethylene as the underside of both can allow bacteria to continue to thrive. Risks of surgery such as continued infection, scar formation, and stiffness were some of the risks discussed. He had wished to proceed. DESCRIPTION OF PROCEDURE: The patient was brought to the OR and general endotracheal anesthesia was established. He was sat up in the beach-chair position. Care was taken to make sure that his right elbow was nicely padded and cubital tunnel was nice and free. Left shoulder area was prepped and then draped. Incision was made directly along the old scar and extended a little about a centimeter proximally and distally to allow for better identification of the normal tissues. He was not terribly scarred down. I was able to lift full-thickness flaps from the surface of the deltoid. Similarly, I was able to come along the deltoid split I had performed and come down into the replacement. There had been a fluid collection in the subcutaneous tissues and this was drained and debrided and had the consistency of egg drop soup with pieces within it. Shoulder was pulse lavaged as I continued to progress with it and a total of 15 L would be used. The first 12 were Betadine diluted with 30 cc into 3 L. With the deltoid split, I was able to come into the joint and some of the scar was peeled anteriorly from the shoulder. Exposure of the socket was easily obtained. Polyethylene lip could easily be found, and using an osteotome, 1 sharp blow knocked the polyethylene out. Similarly, I was able to come underneath the lip of the director gift and knocked the director gift out as well. Glenosphere was easily visible and screw was removed and sphere was also removed. Quite a bit of material was behind the sphere, so this clearly needed to be done. Rongeur was used to debride the capsular area and the area was copiously pulse lavaged. Once the area looked clean and tissues looked benign, 0.5 g of vancomycin was sprinkled onto the back side of the glenosphere and a 36 -mm glenosphere was then placed. On the humeral side, the director gift was again placed and he had initially a +[address]. There had been a tiny amount of play when I first trialed him and because he clearly had loosened a little bit, I went with a +6 as this was fairly snug. +6 polyethylene was then also impacted into place. He was reduced and the shoulder was nice and stable. Remainder of the vancomycin was then sprinkled into the shoulder joint. Deltoid split was repaired using interrupted #1 antibiotic-coated PDS sutures. Wound was again copiously pulse lavaged and subcutaneous tissues were approximated with 2-0 Vicryl. Skin was closed using a running Monocryl. Sterile dressing and a shoulder immobilizer were applied in the OR. The patient was then woken up in the OR and was stable on transfer to the recovery room. DISPOSITION/DISCHARGE SUMMARY: Mr. Bustillo is a 79-year-old male, just underwent an I and D with a head and polyethylene exchange of his left reverse shoulder arthroplasty. He tolerated the procedure well. There were no complications. He is currently being woken up in the OR. He will then be transferred here to the recovery room and when he could tolerate p.o.'s, his pain well controlled, and can void, he will be discharged home. A script for Lacey will be sent in. He already is on amoxicillin and the P. acnes sensitivities are not back yet, so we will continue on the empiric amoxicillin that I have started him on. I will continue to check twice a day for any results and adjust his antibiotic as needed. I would like to see him back on Tuesday for a wound check and make sure that the shoulder looks good and that he is comfortable and progressing. If there are any problems, they are instructed to give the office a call. [id number]/[facility] #: [id number] LESLIE
== END 2019-12-07 19:20 | disposition home or self-care (01) ==
LOC: OR 11:47
PROVIDERS: ATTEND Orthopaedic Surgery
DX: T84.59XA Infection and inflammatory reaction due to other internal joint prosthesis, initial encounter (principal); T84.028A Dislocation of other internal joint prosthesis, initial encounter; Y83.1 Surgical operation with implant of artificial internal device as the cause of abnormal reaction of the patient, or of later complication, without mention of misadventure at the time of the procedure; I10 Essential (primary) hypertension; J84.10 Pulmonary fibrosis, unspecified; Z85.46 Personal history of malignant neoplasm of prostate; R41.3 Other amnesia; M19.90 Unspecified osteoarthritis, unspecified site
CPT/HCPCS: 88300; A9270-GY; C1713; C1776; J0330; J0690; J1100; J1170; J1885; J2250; J2405; J2704; J2765; J3370

== ENCOUNTER 2020-04-16 14:57 | Observation (INO) ==
[2020-04-16] MEDS ORDERED: NS 0.9% 1000 ml BAG 1,000 ML IV ONE (15:21)
[2020-04-16] MEDS ORDERED: Bupivacaine 0.25% EPI 200,000 30 ML SDV ONE (17:22)
[2020-04-16] MEDS ORDERED: fentaNYL 100 mcg/2 ml 50 MCG/ML VIAL ONE ×3 (17:43→19:19)
[2020-04-16] MEDS ORDERED: Rocuronium 50 mg VIAL 10 mg/ml 5 ml VIAL (50 mg) ONE ×2 (17:44→18:59)
[2020-04-16] MEDS ORDERED: Ondansetron 4 mg VIAL 2 MG/ML 2 ml VIAL ONE (18:18)
[2020-04-16] MEDS ORDERED: Dexamethasone IV 4 MG/ML VIAL 1 ml VIAL ONE (18:18)
[2020-04-16] MEDS ORDERED: Naloxone 0.4 mg VIAL 0.4 mg/ml 1 ml VIAL IV PRN (18:22)
[2020-04-16] MEDS ORDERED: fentaNYL 100 mcg/2 ml 50 MCG/ML VIAL IV PRN (18:22)
[2020-04-16] MEDS ORDERED: HYDROmorphone 1 MG/1 ML SYRINGE IV PRN (18:22)
[2020-04-16] MEDS ORDERED: Ondansetron 4 mg VIAL 2 MG/ML 2 ml VIAL IV PRN ×2 (18:22→19:35)
[2020-04-16] MEDS ORDERED: DiMENhydriNATE IV 50 mg/ml 1 ml VIAL IV PUSH PRN (18:22)
[2020-04-16] MEDS ORDERED: Acetaminophen IV 1 GM/100ML 100 ML ONE (18:38)
[2020-04-16] MEDS ORDERED: oxyCODONE/Acetamin 5/325 mg TAB PO PRN (19:35)
[2020-04-16] MEDS ORDERED: HYDROmorphone 1 MG/1 ML SYRINGE IV SLOW PU PRN (19:35)
[2020-04-16] MEDS: NS 0.9% 1000 ml BAG 1,000 ML IV SCH (22:50)
[2020-04-16] MEDS: Piperacillin/Tazobactam VIAL*) 3.375 GM in NS 0.9% 100 ml BAG 100 ML IVPB SCH (23:47)
[2020-04-17] MEDS: NS 0.9% 1000 ml BAG 1,000 ML IV SCH (07:25)
[2020-04-17] MEDS: Piperacillin/Tazobactam VIAL*) 3.375 GM in NS 0.9% 100 ml BAG 100 ML IVPB SCH (08:19)
[2020-04-17 11:09] VITALS: BP 123/62
== END 2020-04-17 13:30 | disposition home or self-care (01) ==
LOC: ED 14:57 → SSU 17:50 → OR 17:50
PROVIDERS: ADMIT Surgery; ATTEND Surgery

== ENCOUNTER 2021-04-06 05:31 | Inpatient (IN) ==
[~2021-04-06 05:31] MED LIST changes: -Buffered Lidocaine 1% SYRIN* 1 ML/SYRINGE INTRADERM ONE; +HYDROcodone/ACETAMIN 5/325 mg TAB PO PRN; -Lactated Ringers 1000 ML Bag* 1,000 ML IV SCH; +Metoclopramide 5 MG/ML VIAL (10 mg) IV PRN; +Naloxone 0.4 mg VIAL 0.4 mg/ml 1 ml VIAL IV PRN; +Ondansetron 4 mg VIAL 2 MG/ML 2 ml VIAL IV PRN; +fentaNYL 100 mcg/2 ml 50 MCG/ML VIAL IV PRN
[2021-04-06] MEDS ORDERED: Buffered Lidocaine 1% SYRIN 1 ml INTRADERM ONE ×2 (06:00→06:08)
[2021-04-06] MEDS ORDERED: Lactated Ringers 1000 ml BAG 1,000 ML IV SCH (06:00)
[2021-04-06] MEDS ORDERED: ceFAZolin 2 GM PREMIX 2 GM/50 ML BAG ONE (06:08)
[2021-04-06 06:39] LABS: INR 1.03 (0.82-1.09)
[2021-04-06] MEDS ORDERED: Rocuronium 50 mg VIAL 10 mg/ml 5 ml VIAL (50 mg) ONE (07:08)
[2021-04-06] MEDS ORDERED: fentaNYL 100 mcg/2 ml 50 MCG/ML VIAL ONE ×2 (07:08→09:05)
[2021-04-06] MEDS ORDERED: Propofol 10 MG/ML 20 ML BTL ONE (07:08)
[2021-04-06] MEDS ORDERED: Remifentanil 2 MG VIAL ONE (07:08)
[2021-04-06] MEDS ORDERED: Lidocaine 0.5% SDV 50 ML VIAL ONE (07:08)
[2021-04-06] MEDS ORDERED: Thrombin 5,000 UNITS 1 APPLIC KIT - topical use - TOPICAL ONE ×2 (07:09→09:56)
[2021-04-06] MEDS ORDERED: Gelfoam 12-7 ADSORBABL SPONGE ONE ×2 (07:10→10:44)
[2021-04-06] MEDS ORDERED: Bacitracin INJECTION 50,000 UNITS ONE ×2 (07:11→10:38)
[2021-04-06] MEDS ORDERED: Bacitracin OINTMENT TUBE ONE (07:11)
[2021-04-06] MEDS ORDERED: Thrombin 5,000 UNITS(BOVINE) for Ultrasound Guided Pseudoaneursym ONE (07:13)
[2021-04-06] MEDS ORDERED: Phenylephrine IV 10 MG/ML 1 ml VIAL ONE (07:15)
[2021-04-06] MEDS ORDERED: Dexamethasone IV 4 MG/ML VIAL 1 ml VIAL ONE (08:59)
[2021-04-06] MEDS ORDERED: EPHEDrine (Pressors) 50 MG/ML VIAL ONE (09:04)
[2021-04-06] MEDS ORDERED: Ondansetron 4 mg VIAL 2 MG/ML 2 ml VIAL ONE (11:00)
[2021-04-06] MEDS ORDERED: HYDROmorphone 1 MG/1 ML SYRINGE ONE (11:16)
[2021-04-06] MEDS ORDERED: Ondansetron 4 mg VIAL 2 MG/ML 2 ml VIAL IV PRN (11:21)
[2021-04-06] MEDS ORDERED: Polyethylene Glycol 3350 17 GM PACKET PO PRN (11:29)
[2021-04-06] MEDS ORDERED: NS 0.9% 1000 ml BAG 1,000 ML IV SCH ×2 (11:30→11:33)
[2021-04-06] MEDS: Acetaminophen IV 1 GM/100ML 100 ML IVPB SCH ×2 (14:29→22:03)
[2021-04-06] MEDS: ceFAZolin 2 GM PREMIX 2 GM/50 ML BAG IVPB SCH (17:58)
[2021-04-06] MEDS: Magnesium Hydroxide LIQ 30 ML UDC PO SCH (20:04)
[2021-04-07] MEDS: ceFAZolin 2 GM PREMIX 2 GM/50 ML BAG IVPB SCH ×2 (01:29→09:20)
[2021-04-07] MEDS: Acetaminophen IV 1 GM/100ML 100 ML IVPB SCH (05:51)
[2021-04-07] MEDS ORDERED: Vitamin THERAPEUTIC TAB PO SCH (09:00)
[2021-04-07] MEDS ORDERED: Pneumococcal Vac 23-Polyvalent IM ONE (09:00)
[2021-04-07] MEDS: Magnesium Hydroxide LIQ 30 ML UDC PO SCH ×2 (09:23→09:32)
[2021-04-07 10:58] VITALS: BP 144/81
== END 2021-04-07 13:20 | disposition home or self-care (01) | DRG 33 ==
LOC: AA 05:31 → SSU 13:20
PROVIDERS: ADMIT Neurological Surgery; ATTEND Neurological Surgery

== ENCOUNTER 2022-09-02 21:41 | Inpatient (IN) ==
[2022-09-02 21:56] LABS: ABS Basophils 0.1 10^3/ul (0-0.2); ABS Eosinophils 0.2 10^3/ul (0-0.6); ABS Lymphocytes 0.9 10^3/ul (1.0-4.8); ABS Monocytes 0.8 10^3/ul (0-0.8); ABS Neutrophils 4.8 10^3/ul (1.5-7.7); Hematocrit 33 % (42-52); Hemoglobin 11.2 g/dL (14.0-18.0); Lymphocyte % 13.8 %; Mean Corpuscular HGB Conc 34 g/dL (31-36); Mean Corpuscular Hemoglobin 30 pg (27-31); Mean Corpuscular Volume 88 fL (80-94); Mean Platelet Volume 7.6 fL (7.4-10.4); Platelet Count 196 10^3/uL (150-450); Red Blood Count 3.69 10^6 /uL (4.18-5.48); Red Cell Distribution Width 14 % (10-15); White Blood Count 6.8 10^3/uL (3.5-10.8)
[2022-09-02 22:05] LABS: Activated Partial Thrombo Time 30.3 seconds (26.0-38.0); INR 1.47 (0.89-1.11)
[2022-09-02] MEDS ORDERED: Prothrombin Complex Conc. DOSE = Units Factor IX (nine) IV SLOW PU ONE (22:15)
[2022-09-02 22:28] LABS: Albumin 3.5 g/dL (3.2-5.2); Albumin/Globulin Ratio 1.1 (1-3); Calcium 8.5 mg/dL (8.6-10.3); Globulin 3.1 g/dL (2-4); HDL Cholesterol 32.8 mg/dL; Potassium 4.5 mmol/L (3.5-5.0); Total Bilirubin 0.7 mg/dL (0.2-1.0); Total Protein 6.6 g/dL (6.4-8.9); eGFR CKD-EPI 94.8 (>60)
[2022-09-02] MEDS ORDERED: Morphine ORAL CONCENTRATE 5 MG/0.25 ML ORAL.SYRIN PO PRN (22:36)
[2022-09-03] MEDS ORDERED: LORazepam 2 mg VIAL 1 ml IV PUSH PRN ×3 (00:49→16:44)
[2022-09-03] MEDS: Morphine 2 MG/ML SYRINGE IV PRN ×2 (07:09→08:12)
[2022-09-03 08:29] VITALS: BP 0/0
[2022-09-03] MEDS ORDERED: Ondansetron 4 mg VIAL 2 MG/ML 2 ml VIAL IV PRN (09:09)
[2022-09-03] MEDS ORDERED: Atropine 1% (ORAL/SL) 15 ML BTL SL PRN (09:09)
[2022-09-03] MEDS ORDERED: Lorazepam PYXIS KEY PRN ×2 (12:47→16:24)
[2022-09-03] MEDS ORDERED: Morphine PCA ADULT 5 MG/ML 30 ML PCA SCH (15:45)
[2022-09-03] MEDS ORDERED: Scopolamine 1 mg/72hr PATCH TRANSDERM SCH (17:00)
[2022-09-03] MEDS: LORazepam 2 mg VIAL 1 ml IV PUSH SCH ×2 (17:30→22:54)
[2022-09-04] MEDS: LORazepam 2 mg VIAL 1 ml IV PUSH SCH ×4 (02:09→13:25)
== END 2022-09-04 14:08 | disposition expired | DRG 951 ==
LOC: ED 21:41 → EDHOLD 23:00 → MED 09-03 07:50
PROVIDERS: ADMIT Internal Medicine; ATTEND Internal Medicine